=== PATIENT | female | born 1935 | race Caucasian/White ===

== ENCOUNTER 2018-12-19 22:28 | Inpatient (IN) | payer MEDICARE, OTHER ==
[2018-12-19 23:44] LABS: ADD MAN DIFF? NO
[2018-12-19] MEDS: LIDOCAINE/MYLANTA 40 ML BTL PO (23:44)
[2018-12-19] MEDS: ONDANSETRON 4 MG INJ IV (23:44)
[2018-12-19] MEDS: SOD CHLORIDE 0.9% 1,000 ML IV (23:44)
[2018-12-19] MEDS: BELLADONNA/PHENOBARBITAL TAB PO (23:44)
[2018-12-19 23:45] LABS: WHITE BLOOD COUNT 9.6 10^3/ul (4.8-10.8)
[2018-12-19 23:45] LABS: BASOPHIL # 0.1 10^3/ul (0.0-0.1); BASOPHILS % 0.7 % (0.0-2.0); EOSINOPHILS % 0.3 % (0.0-7.0); HEMATOCRIT 35.1 % (37.0-47.0); HEMOGLOBIN 11.9 g/dl (12.0-16.0); LYMPHOCYTES # 2.8 10^3/ul (0.8-2.9); LYMPHOCYTES % 28.7 % (15.0-51.0); MEAN CORPUSCULAR HEMOGLOBIN 29.8 pg (29.0-33.0); MEAN CORPUSCULAR HGB CONC 33.9 g/dl (32.0-37.0); MEAN CORPUSCULAR VOLUME 87.8 fl (82.0-101.0); MONOCYTE # 0.6 10^3/ul (0.3-0.9); MONOCYTES % 5.9 % (0.0-11.0); NEUTROPHIL # 6.2 10^3/ul (1.6-7.5); PLATELET COUNT 211 10^3/UL (140-415); RED CELL DISTRIBUTION WIDTH 12.7 % (11.5-14.5)
[2018-12-19 23:55] LABS: ADD UMIC YES; UR ASCORBIC ACID NEGATIVE (NEGATIVE); UR BACTERIA FEW /HPF (NONE SEEN); UR BILIRUBIN (Dip) NEGATIVE (NEGATIVE); UR BLOOD (Dip) NEGATIVE (NEGATIVE); UR CLARITY CLEAR (CLEAR); UR COLOR STRAW (YELLOW); UR GLUCOSE (Dip) NEGATIVE (NEGATIVE); UR KETONES (Dip) NEGATIVE (NEGATIVE); UR LEUKOCYTE ESTERASE (Dip) TRACE Leu/ul (NEGATIVE); UR MUCUS FEW /HPF (NONE SEEN); UR NITRITE (Dip) NEGATIVE (NEGATIVE); UR RBC 2 /HPF (0-5); UR SQUAMOUS EPITHELIAL CELL FEW /HPF (FEW); UR TOTAL PROTEIN (Dip) NEGATIVE (NEGATIVE); UR UROBILINOGEN (Dip) NEGATIVE (NEGATIVE); UR WBC 5 /HPF (0-5)
[2018-12-20 00:02] LABS: ALANINE AMINOTRANSFERASE 11 IU/L (13-69); ALBUMIN 4.1 g/dl (3.3-4.9); ALBUMIN/GLOBULIN RATIO 1.36; ALKALINE PHOSPHATASE 58 IU/L (42-121); ANION GAP 6 (5-13); ASPARTATE AMINO TRANSFERASE 20 IU/L (15-46); BILIRUBIN,INDIRECT 0.3 mg/dl (0-1.1); BILIRUBIN,TOTAL 0.3 mg/dl (0.2-1.3); BLOOD UREA NITROGEN 13 mg/dl (7-20); CALCIUM 8.9 mg/dl (8.4-10.2); CARBON DIOXIDE 28 mmol/L (21-31); CHLORIDE 94 mmol/L (97-110); CREATININE 0.58 mg/dl (0.44-1.00); GLUCOSE 121 mg/dl (70-220); LIPASE 43 U/L (23-300); SODIUM 128 mmol/L (135-144); TOTAL PROTEIN 7.1 g/dl (6.1-8.1)
[2018-12-20 00:14] LABS: TROPONIN-I 0.022 ng/ml (0.000-0.120)
[2018-12-20] MEDS ORDERED: ONDANSETRON 4 MG INJ IV (02:00)
[2018-12-20] MEDS ORDERED: NACL 0.9% 3 ML SYG IV (02:00)
[2018-12-20 07:22] LABS: ADD MAN DIFF? NO
[2018-12-20 07:28] LABS: BASOPHIL # 0.1 10^3/ul (0.0-0.1); BASOPHILS % 0.9 % (0.0-2.0); EOSINOPHILS # 0.1 10^3/ul (0.0-0.5); EOSINOPHILS % 1.3 % (0.0-7.0); HEMATOCRIT 34.6 % (37.0-47.0); HEMOGLOBIN 11.6 g/dl (12.0-16.0); LYMPHOCYTES # 2.9 10^3/ul (0.8-2.9); LYMPHOCYTES % 37.5 % (15.0-51.0); MEAN CORPUSCULAR HEMOGLOBIN 29.5 pg (29.0-33.0); MEAN CORPUSCULAR HGB CONC 33.5 g/dl (32.0-37.0); MEAN PLATELET VOLUME 9.1 fl (7.4-10.4); MONOCYTE # 0.6 10^3/ul (0.3-0.9); NEUTROPHIL # 4.1 10^3/ul (1.6-7.5); PLATELET COUNT 226 10^3/UL (140-415); RED BLOOD COUNT 3.93 10^6/ul (4.20-5.40); RED CELL DISTRIBUTION WIDTH 12.5 % (11.5-14.5)
[2018-12-20 07:28] LABS: WHITE BLOOD COUNT 7.8 10^3/ul (4.8-10.8)
[2018-12-20 07:45] LABS: ALANINE AMINOTRANSFERASE 13 IU/L (13-69); ALBUMIN 3.9 g/dl (3.3-4.9); ALKALINE PHOSPHATASE 51 IU/L (42-121); ANION GAP 5 (5-13); ASPARTATE AMINO TRANSFERASE 20 IU/L (15-46); BILIRUBIN,INDIRECT 0.3 mg/dl (0-1.1); BILIRUBIN,TOTAL 0.3 mg/dl (0.2-1.3); BLOOD UREA NITROGEN 11 mg/dl (7-20); CALCIUM 8.6 mg/dl (8.4-10.2); CARBON DIOXIDE 28 mmol/L (21-31); CHLORIDE 97 mmol/L (97-110); CHOL/HDL RATIO 2.9 RATIO; CHOLESTEROL 208 mg/dl (100-200); CREATININE 0.62 mg/dl (0.44-1.00); GLUCOSE 101 mg/dl (70-220); HDL CHOLESTEROL 71 mg/dl (33-92); LDL CHOLESTEROL,CALCULATED 126 mg/dl; POTASSIUM 3.8 mmol/L (3.5-5.1); SODIUM 130 mmol/L (135-144); TOTAL PROTEIN 6.9 g/dl (6.1-8.1); TRIGLYCERIDES 56 mg/dl (0-149)
[2018-12-20] MEDS: CEFTRIAXONE 1 GM/50 ML (PMX) 50 ML IVPB (08:04)
[2018-12-20] MEDS: SODIUM CHLORIDE 0.45% 500 ML BAG IV* (08:04)
[2018-12-20 08:25] LABS: HEMOGLOBIN A1C 5.7 % (0-5.9)
[2018-12-20] MEDS: MEMANTINE 10 MG TAB PO (08:34)
[2018-12-20] MEDS: APIXABAN 5 MG TABLET PO ×2 (08:34→20:34)
[2018-12-20] MEDS: LORATADINE 10 MG TAB PO (08:34)
[2018-12-20 09:46] LABS: ANION GAP 11 (5-13); BLOOD UREA NITROGEN 11 mg/dl (7-20); CALCIUM 8.5 mg/dl (8.4-10.2); CARBON DIOXIDE 24 mmol/L (21-31); CHLORIDE 94 mmol/L (97-110); CREATININE 0.61 mg/dl (0.44-1.00); GLUCOSE 211 mg/dl (70-220); POTASSIUM 3.9 mmol/L (3.5-5.1); SODIUM 129 mmol/L (135-144)
[2018-12-20] MEDS: FLUTICASONE/VILANTEROL 100-25 INH (13:48)
[2018-12-20 14:47] LABS: ANION GAP 9 (5-13); BLOOD UREA NITROGEN 15 mg/dl (7-20); CALCIUM 8.9 mg/dl (8.4-10.2); CARBON DIOXIDE 25 mmol/L (21-31); CHLORIDE 96 mmol/L (97-110); CREATININE 0.69 mg/dl (0.44-1.00); GLUCOSE 141 mg/dl (70-220); POTASSIUM 3.8 mmol/L (3.5-5.1); SODIUM 130 mmol/L (135-144)
[2018-12-20 17:18] LABS: ANION GAP 10 (5-13); BLOOD UREA NITROGEN 17 mg/dl (7-20); CALCIUM 9.3 mg/dl (8.4-10.2); CARBON DIOXIDE 25 mmol/L (21-31); CHLORIDE 97 mmol/L (97-110); CREATININE 0.73 mg/dl (0.44-1.00); GLUCOSE 148 mg/dl (70-220); SODIUM 132 mmol/L (135-144)
[2018-12-20 17:30] LABS: TROPONIN-I 0.012 ng/ml (0.000-0.120)
[2018-12-20] MEDS: FAMOTIDINE 20 MG TAB PO (20:34)
[2018-12-20] MEDS: MONTELUKAST 10 MG TAB PO (20:34)
[2018-12-20] MEDS: FISH OIL 1,000 MG CAP PO (20:34)
[2018-12-20] MEDS: ATORVASTATIN 10 MG TAB PO (20:57)
[2018-12-20] MEDS ORDERED: VIT D3 PO (21:00)
[2018-12-20] MEDS ORDERED: [UNRECOGNIZED DRUG - OTHER] PO (21:00)
[2018-12-20] MEDS ORDERED: MONTELUKAST 10 MG TAB PO (21:00)
[2018-12-20] MEDS ORDERED: CALCIUM PHOSPHATE DIBAS PO (21:00)
[2018-12-20 23:01] LABS: ANION GAP 8 (5-13); BLOOD UREA NITROGEN 15 mg/dl (7-20); CALCIUM 9.1 mg/dl (8.4-10.2); CARBON DIOXIDE 25 mmol/L (21-31); CHLORIDE 92 mmol/L (97-110); CREATININE 0.69 mg/dl (0.44-1.00); GLUCOSE 109 mg/dl (70-220); POTASSIUM 4.4 mmol/L (3.5-5.1); SODIUM 125 mmol/L (135-144)
[2018-12-21] MEDS: SOD CHLORIDE 0.9% 1,000 ML IV (02:43)
[2018-12-21] MEDS: ONDANSETRON 4 MG TAB PO (03:41)
[2018-12-21 05:21] LABS: ADD MAN DIFF? NO
[2018-12-21 05:25] LABS: BASOPHIL # 0.1 10^3/ul (0.0-0.1); BASOPHILS % 1.1 % (0.0-2.0); EOSINOPHILS # 0.2 10^3/ul (0.0-0.5); EOSINOPHILS % 1.6 % (0.0-7.0); HEMATOCRIT 35.6 % (37.0-47.0); HEMOGLOBIN 11.8 g/dl (12.0-16.0); LYMPHOCYTES # 3.6 10^3/ul (0.8-2.9); LYMPHOCYTES % 37.9 % (15.0-51.0); MEAN CORPUSCULAR HEMOGLOBIN 29.4 pg (29.0-33.0); MEAN CORPUSCULAR HGB CONC 33.1 g/dl (32.0-37.0); MEAN CORPUSCULAR VOLUME 88.6 fl (82.0-101.0); MEAN PLATELET VOLUME 9.3 fl (7.4-10.4); MONOCYTE # 0.7 10^3/ul (0.3-0.9); NEUTROPHIL # 4.9 10^3/ul (1.6-7.5); NEUTROPHILS % 52.1 % (39.0-77.0); PLATELET COUNT 242 10^3/UL (140-415); RED BLOOD COUNT 4.02 10^6/ul (4.20-5.40); RED CELL DISTRIBUTION WIDTH 12.7 % (11.5-14.5)
[2018-12-21 05:25] LABS: WHITE BLOOD COUNT 9.4 10^3/ul (4.8-10.8)
[2018-12-21 06:02] LABS: ANION GAP 11 (5-13); BLOOD UREA NITROGEN 12 mg/dl (7-20); CALCIUM 8.9 mg/dl (8.4-10.2); CARBON DIOXIDE 23 mmol/L (21-31); CHLORIDE 96 mmol/L (97-110); CREATININE 0.65 mg/dl (0.44-1.00); GLUCOSE 156 mg/dl (70-220); SODIUM 130 mmol/L (135-144)
[2018-12-21] MEDS: CEFTRIAXONE 1 GM/50 ML (PMX) 50 ML IVPB ×2 (06:09→07:38)
[2018-12-21] MEDS: ACETAMINOPHEN 325 MG TAB PO (06:12)
[2018-12-21] MEDS: LOSARTAN 25 MG TAB PO (08:40)
[2018-12-21] MEDS: LORATADINE 10 MG TAB PO (08:40)
[2018-12-21] MEDS: FISH OIL 1,000 MG CAP PO ×2 (08:40→20:27)
[2018-12-21] MEDS: FLUTICASONE/VILANTEROL 100-25 INH (08:40)
[2018-12-21] MEDS: APIXABAN 5 MG TABLET PO ×2 (08:40→20:27)
[2018-12-21] MEDS: MEMANTINE 10 MG TAB PO (08:40)
[2018-12-21 09:05] LABS: ANION GAP 6 (5-13); BLOOD UREA NITROGEN 10 mg/dl (7-20); CALCIUM 8.3 mg/dl (8.4-10.2); CARBON DIOXIDE 24 mmol/L (21-31); CHLORIDE 101 mmol/L (97-110); CREATININE 0.57 mg/dl (0.44-1.00); GLUCOSE 108 mg/dl (70-220); POTASSIUM 3.9 mmol/L (3.5-5.1); SODIUM 131 mmol/L (135-144)
[2018-12-21] MEDS: CALCIUM/VITAMIN D (500/200) TAB PO ×2 (09:30→20:28)
[2018-12-21 13:10] LABS: ANION GAP 3 (5-13); BLOOD UREA NITROGEN 11 mg/dl (7-20); CALCIUM 8.8 mg/dl (8.4-10.2); CARBON DIOXIDE 27 mmol/L (21-31); CHLORIDE 102 mmol/L (97-110); CREATININE 0.59 mg/dl (0.44-1.00); GLUCOSE 98 mg/dl (70-220); POTASSIUM 4.5 mmol/L (3.5-5.1); SODIUM 132 mmol/L (135-144)
[2018-12-21] MEDS: METOCLOPRAMIDE 5 MG TAB PO ×2 (13:27→20:28)
[2018-12-21] MEDS: LACTULOSE 30ML CUP PO (13:27)
[2018-12-21] MEDS: MAGNESIUM HYDROXIDE 30ML CUP PO (13:27)
[2018-12-21] MEDS: FAMOTIDINE 20 MG TAB PO (20:27)
[2018-12-21] MEDS: MONTELUKAST 10 MG TAB PO (20:27)
[2018-12-21] MEDS: ATORVASTATIN 10 MG TAB PO (20:28)
[2018-12-21] MEDS: LORAZEPAM 0.5 MG TAB PO (20:28)
[2018-12-22 05:46] LABS: ADD MAN DIFF? NO
[2018-12-22 05:52] LABS: WHITE BLOOD COUNT 9.6 10^3/ul (4.8-10.8)
[2018-12-22 05:52] LABS: BASOPHIL # 0.1 10^3/ul (0.0-0.1); BASOPHILS % 0.9 % (0.0-2.0); EOSINOPHILS # 0.2 10^3/ul (0.0-0.5); EOSINOPHILS % 2.1 % (0.0-7.0); HEMATOCRIT 32.7 % (37.0-47.0); HEMOGLOBIN 10.9 g/dl (12.0-16.0); LYMPHOCYTES # 3.5 10^3/ul (0.8-2.9); LYMPHOCYTES % 37.1 % (15.0-51.0); MEAN CORPUSCULAR HEMOGLOBIN 29.3 pg (29.0-33.0); MEAN CORPUSCULAR HGB CONC 33.3 g/dl (32.0-37.0); MEAN CORPUSCULAR VOLUME 87.9 fl (82.0-101.0); MEAN PLATELET VOLUME 9.1 fl (7.4-10.4); MONOCYTE # 0.7 10^3/ul (0.3-0.9); MONOCYTES % 7.4 % (0.0-11.0); NEUTROPHILS % 51.9 % (39.0-77.0); PLATELET COUNT 245 10^3/UL (140-415); RED BLOOD COUNT 3.72 10^6/ul (4.20-5.40); RED CELL DISTRIBUTION WIDTH 12.6 % (11.5-14.5)
[2018-12-22 06:28] LABS: ALANINE AMINOTRANSFERASE 11 IU/L (13-69); ALBUMIN 3.8 g/dl (3.3-4.9); ALBUMIN/GLOBULIN RATIO 1.31; ALKALINE PHOSPHATASE 48 IU/L (42-121); ANION GAP 5 (5-13); ASPARTATE AMINO TRANSFERASE 20 IU/L (15-46); BILIRUBIN,INDIRECT 0.2 mg/dl (0-1.1); BILIRUBIN,TOTAL 0.2 mg/dl (0.2-1.3); BLOOD UREA NITROGEN 9 mg/dl (7-20); CALCIUM 9.4 mg/dl (8.4-10.2); CARBON DIOXIDE 27 mmol/L (21-31); CHLORIDE 104 mmol/L (97-110); CREATININE 0.56 mg/dl (0.44-1.00); GLUCOSE 91 mg/dl (70-220); SODIUM 136 mmol/L (135-144); TOTAL PROTEIN 6.7 g/dl (6.1-8.1)
[2018-12-22] MEDS: CEFTRIAXONE 1 GM/50 ML (PMX) 50 ML IVPB (06:31)
[2018-12-22] MEDS: APIXABAN 5 MG TABLET PO ×2 (08:44→22:08)
[2018-12-22] MEDS: FISH OIL 1,000 MG CAP PO ×2 (08:44→22:08)
[2018-12-22] MEDS: MEMANTINE 10 MG TAB PO (08:44)
[2018-12-22] MEDS: FLUTICASONE/VILANTEROL 100-25 INH (08:44)
[2018-12-22] MEDS: LORATADINE 10 MG TAB PO (08:44)
[2018-12-22] MEDS: CALCIUM/VITAMIN D (500/200) TAB PO ×2 (08:44→22:09)
[2018-12-22] MEDS: LOSARTAN 25 MG TAB PO (08:45)
[2018-12-22] MEDS: METOCLOPRAMIDE 5 MG TAB PO (08:45)
[2018-12-22] MEDS: FAMOTIDINE 20 MG TAB PO (22:08)
[2018-12-22] MEDS: traMADol 50 MG TAB PO (22:09)
[2018-12-22] MEDS: ATORVASTATIN 10 MG TAB PO (22:09)
[2018-12-22] MEDS: MONTELUKAST 10 MG TAB PO (22:09)
[2018-12-23] MEDS: ONDANSETRON 4 MG TAB PO (00:06)
[2018-12-23] MEDS ORDERED: ONDANSETRON 4 MG INJ IV (03:30)
[2018-12-23 06:26] LABS: ADD MAN DIFF? NO
[2018-12-23 06:29] LABS: WHITE BLOOD COUNT 9.6 10^3/ul (4.8-10.8)
[2018-12-23 06:29] LABS: BASOPHIL # 0.1 10^3/ul (0.0-0.1); BASOPHILS % 0.9 % (0.0-2.0); EOSINOPHILS # 0.2 10^3/ul (0.0-0.5); EOSINOPHILS % 2.3 % (0.0-7.0); HEMATOCRIT 33.6 % (37.0-47.0); HEMOGLOBIN 11.4 g/dl (12.0-16.0); LYMPHOCYTES # 3.4 10^3/ul (0.8-2.9); LYMPHOCYTES % 35.7 % (15.0-51.0); MEAN CORPUSCULAR HEMOGLOBIN 30.1 pg (29.0-33.0); MEAN CORPUSCULAR HGB CONC 33.9 g/dl (32.0-37.0); MEAN CORPUSCULAR VOLUME 88.7 fl (82.0-101.0); MEAN PLATELET VOLUME 9.1 fl (7.4-10.4); MONOCYTE # 0.7 10^3/ul (0.3-0.9); MONOCYTES % 7.5 % (0.0-11.0); NEUTROPHIL # 5.1 10^3/ul (1.6-7.5); NEUTROPHILS % 53.3 % (39.0-77.0); PLATELET COUNT 248 10^3/UL (140-415); RED BLOOD COUNT 3.79 10^6/ul (4.20-5.40); RED CELL DISTRIBUTION WIDTH 12.9 % (11.5-14.5)
[2018-12-23] MEDS: CEFTRIAXONE 1 GM/50 ML (PMX) 50 ML IVPB (06:33)
[2018-12-23 06:58] LABS: MAGNESIUM 1.8 mg/dl (1.7-2.5)
[2018-12-23 07:06] LABS: ANION GAP 10 (5-13); BLOOD UREA NITROGEN 12 mg/dl (7-20); CARBON DIOXIDE 27 mmol/L (21-31); CHLORIDE 98 mmol/L (97-110); CREATININE 0.65 mg/dl (0.44-1.00); GLUCOSE 97 mg/dl (70-220); POTASSIUM 4.2 mmol/L (3.5-5.1); SODIUM 135 mmol/L (135-144)
[2018-12-23] MEDS: LORATADINE 10 MG TAB PO (10:57)
[2018-12-23] MEDS: FLUTICASONE/VILANTEROL 100-25 INH (10:57)
[2018-12-23] MEDS: MEMANTINE 10 MG TAB PO (10:58)
[2018-12-23] MEDS: FISH OIL 1,000 MG CAP PO (10:58)
[2018-12-23] MEDS: CALCIUM/VITAMIN D (500/200) TAB PO (10:58)
[2018-12-23] MEDS: APIXABAN 5 MG TABLET PO (10:58)
[2018-12-23] MEDS: LOSARTAN 25 MG TAB PO (10:58)
== END 2018-12-23 16:40 | disposition home health service (06) | DRG 641 ==
LOC: E/R 22:28 → 5EC 12-20 00:30 → PP2 12-20 01:08
DX: E87.1 Hypo-osmolality and hyponatremia (principal); M87.9 Osteonecrosis, unspecified; M87.852 Other osteonecrosis, left femur; M87.851 Other osteonecrosis, right femur; N39.0 Urinary tract infection, site not specified; J45.40 Moderate persistent asthma, uncomplicated; R53.81 Other malaise; Z86.73 Personal history of transient ischemic attack (TIA), and cerebral infarction without residual deficits; E86.0 Dehydration; Z95.5 Presence of coronary angioplasty implant and graft; Z79.02 Long term (current) use of antithrombotics/antiplatelets; J45.909 Unspecified asthma, uncomplicated; K25.9 Gastric ulcer, unspecified as acute or chronic, without hemorrhage or perforation
CPT/HCPCS: 36415; 71045; 73510; 80048; 80053; 80061; 81001; 82533; 83036; 83690; 83735; 84443; 84484; 85025; 87086; 93005; 96374; 97110; 97116; 97162; 97530; 99217; 99285-25